=== PATIENT | male | born 1965 | race Caucasian/White ===

== ENCOUNTER 2022-03-08 11:40 | Emergency (ER) | payer OTHER, SELFPAY ==
--- NOTE | ~2022-03-08 | XR_ITS ---
EXAMINATION: XR finger 2nd LT min 2V DATE: 03/08/2022 12:11 INDICATION: Left hand second digit foreign body. TECHNIQUE: 3 views of left hand second digit were obtained. COMPARISON: None. FINDINGS: Bone alignment is normal. No fracture. There is mild osteoarthritis of second metacarpophal angeal joint and proximal interphalangeal joint and moderate osteoarthritis of second distal interpha langeal joint. IMPRESSION: 1. No radiopaque foreign body. 2. Polyarticular osteoarthritis. Reviewed, dictated and finalized at location A.
[2022-03-08 11:48] VITALS: BP 153/100; PULSE 83; RESP 20; TEMP 37.2; O2SAT 98
--- NOTE | 2022-03-08 12:37 | ED.EXTPRO ---
HPI - Extremity Problem General Chief complaint: Extremity Problem,Nontraumatic Stated complaint: Foreign Body in Finger Time Seen by Provider: 03/08/22 12:37 Source: patient, RN notes reviewed and old records reviewed Mode of arrival: ambulatory Limitations: no limitations History of Present Illness HPI Narrative: 56 year old male presents to express care with complaints of possible foreign body in his volar aspect of mid index finger noted since Monday. Patient has 0.25 cm diameter red swollen lesion to the volar mid aspect of left index finger. 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 Patient also reports that he needs his Tetanus updated. Patient report that he does not recall anything going into his finger and he denies any injury to left index finger. MD Complaint: other (possible foreign body left index finger) Onset (ago): day(s) (2) Pain Consistency: constant Location: left and other (index finger) Severity scale (1-10): 3 Related Data Allergies Allergy/AdvReac Type Severity Reaction Status Date / Time No Known Allergies Allergy Verified 03/08/22 12:22 Review of Systems Review of Systems: CONSTITUTIONAL: Denies fever, chills, or sweats. EYES: Denies visual changes, redness, or discharge. ENT: Denies rhinorrhea, congestion, sore throat, or otalgia. CARDIOVASCULAR: Denies chest pain, palpitations, or edema. RESPIRATORY: Denies cough or dyspnea. GASTROINTESTINAL: Denies abdominal pain, nausea, vomiting, or diarrhea. GENITOURINARY: Denies dysuria or hematuria. SKIN: Denies rash or itching.Positive for red raised painful lesion to the volar aspect of mid left index finger MUSCULOSKELETAL: Denies back pain, joint pain, or myalgia. NEUROLOGIC: Denies headache, numbness, or weakness. PSYCHIATRIC: Denies anxiety or depression. PMFSH Social History Social History (Updated 03/09/22 @ 09:22 by Jia Chung NP) Smoking status: Never smoker Alcohol intake: unknown Substance use: unknown Living arrangements: with family Gender identity (if verbalized by the patient): Male Comments At time of signature, agree with nursing past medical, surgical, social and family history. There is no relevant family history pertinent to the presenting complaint Exam Narrative: GENERAL: Well-appearing, well-nourished, and in no acute distress. HEAD: Normocephalic, atraumatic. EYES: PERRLA and EOMI. ENT: Nares clear, no rhinorrhea or epistaxis. Mucous membranes moist.TM's normal with good light reflex, throat pink with no lesions or exudates, no tonsil enlargement NECK: Supple.no lymphadenopathy CHEST: Clear to auscultation. No respiratory distress.SAO2 98% on room air HEART: Regular rate and rhythm. No murmur heard. Normal peripheral pulses. ABDOMEN: Soft, nontender, nondistended, normal active bowel sounds. EXTREMITIES: Normal range of motion. No edema. SKIN: Warm, dry, no rash. Red raised tender lesion to volar aspect of left mid index finger, tender on palpation and on examination purulent drainage emitted, no acute warmth of tissue, no foreign body identified, Wound cleansed with Primaderm cleanser and triple antibiotic ointment and band-aid applied. NEURO: No focal deficits. Alert and oriented x3. Course Course Level of Care: Express Care Visit Vital Signs Vital signs: Vital Signs Temperature 37.2 C 03/08/22 11:48 Pulse Rate 83 03/08/22 11:48 Respiratory Rate 20 03/08/22 11:48 Blood Pressure 153/100 H 03/08/22 11:48 Pulse Oximetry 98 03/08/22 11:48 Oxygen Delivery Room Air 03/08/22 11:48 Temperature 37.2 C 03/08/22 11:48 Pulse Rate 83 03/08/22 11:48 Respiratory Rate 20 03/08/22 11:48 Blood Pressure 153/100 H 03/08/22 11:48 Pulse Oximetry 98 03/08/22 11:48 Oxygen Delivery Room Air 03/08/22 11:48 MDM - Extremity (Nontraumatic) Differential Diagnosis Differential diagnosis: Elizabeth
[2022-03-08] MEDS: TETANUS,DIPHTHERIA,AC PERTUSSIS ADULT (0.5 ML) BOOSTRIX IM (13:04)
== END 2022-03-08 13:08 | disposition home or self-care (01) ==
PROVIDERS: Emergency Provider Registered Nurse
DX: L02.512 Cutaneous abscess of left hand (principal); Z23 Encounter for immunization
CPT/HCPCS: 73140; 90471; 90715; 99203; G0463

== ENCOUNTER 2022-09-11 15:09 | Emergency (ER) | payer OTHER, SELFPAY ==
--- NOTE | ~2022-09-11 | CT_ITS ---
EXAMINATION: CT diagnostic chest wo con DATE: 09/11/2022 18:12 INDICATION: left pleural effusion? TECHNIQUE: Computed tomography (CT) of the chest was performed with 100 mL Omnipaque-350 intravenous contrast. Automated exposure control and iterative reconstruction technique were employed. The dose-l ength product was 270.13 mGy-cm. COMPARISON: X-ray chest, same date. FINDINGS: CHEST: Thoracic aorta: Mild arch calcification. Lung parenchyma and airways: Dependent atelectasis. Lingular scar. Mild scattered peripheral intersti tial change with a few tree-in-bud opacities most notably in the lingula. Scattered calcified granulo mas. Thoracic inlet, axillae and chest wall: No thyroid or soft tissue mass. No axillary lymphadenopathy. Bilateral gynecomastia. Mediastinum: No mass or lymphadenopathy. Small hiatal hernia. Heart and pericardium: Normal heart size. No pericardial effusion. Coronary artery calcifications: Absent. Pleura: No effusion or mass. Upper abdomen: Diffuse fatty infiltration of the liver. Thoracic bones: No acute osseous finding in the chest. IMPRESSION: Mild interstitial and tree-in-bud opacities may reflect atypical infection versus small airways disea se. Lingular scarring without evidence of left pleural effusion. Gynecomastia. Steatosis. Reviewed, dictated and finalized at location K. NGUAL TEACHER ASSISTANT IMPRESSION: Mild interstitial and tree-in-bud opacities may reflect atypical infection vers us small airways disease. Lingular scarring without evidence of left pleural ef fusion. Gynecomastia. Steatosis.
--- NOTE | ~2022-09-11 | XR_ITS ---
EXAMINATION: XR chest 1V portable Exam Date/Time: 09/11/2022 16:26 INVESTMENT BANKER HISTORY: sob Comparison: None available. RESULT: Lines, tubes, and devices: None. Lungs and pleura: Clear. Blunting of left costophrenic angle. Cardiomediastinal silhouette: Unremarkable. Other: No acute osseous or upper abdominal finding. IMPRESSION: Small left pleural effusion versus chronic pleural parenchymal scarring. Reviewed, dictated and finalized at location K. STMENT BANKER
[2022-09-11 15:10] VITALS: BP 163/101; PULSE 102; RESP 18; TEMP 36.6; O2SAT 97
--- NOTE | 2022-09-11 16:12 | ECG_ITS ---
Measurements Intervals [place] Rate: 100 P: 53 MS: 175 QRS: 30 QRSD: 97 T: 36 QT: 343 QTc: 443 Interpretive Statements SINUS TACHYCARDIA WITH OCCASIONAL VENTRICULAR PREMATURE COMPLEXES BASELINE ARTIFACT BORDERLINE ECG NO PREVIOUS ECG AVAILABLE FOR COMPARISON Electronically Signed On 09-12-2022 14:45:28 EXCEPTIONAL NEEDS TEACHER by Jeison Brandt M.D.
[2022-09-11] MEDS: SODIUM CHLORIDE 0.9% IV 500 ML 999 ML IV CONT (16:37)
[2022-09-11 16:40] VITALS: BP 168/94; PULSE 89; RESP 20; O2SAT 97
[2022-09-11 16:42] LABS: Base Excess ABG 0.9 mmol/L (0-2); HCO3 ABG 23.4 mmol/L (23-29); Oxygen Content ABG 23.1 %vol (16.0-22.0); Oxygen Saturation ABG 97.1 % (95-97); Oxyhemoglobin 95.8 % (94-100); PCO2 ABG 32.1 mmHg (35-45); Total Hemoglobin 17.1 g/dL (12.0-18.0); pH ABG 7.48 (7.35-7.45)
[2022-09-11 16:48] LABS: Device ROOM AIR; Modified Allen's Test Pass; Site Drawn RIGHT RADIAL
[2022-09-11 16:50] LABS: Basophils Absolute Auto 0.05 K/mm3 (0.00-0.10); Basophils Percent Auto 0.6 % (0.0-1.0); Eosinophils Absolute Auto 0.07 K/mm3 (0.02-0.50); Eosinophils Percent Auto 0.8 % (1.0-6.0); Hematocrit 48.7 % (40.0-54.0); Hemoglobin 17.3 g/dL (14.0-18.0); Immature Granulocyte Absolute 0.03 K/mm3 (0.00-0.00); Immature Granulocyte Percent A 0.3 % (0.0-0.0); Lymphocytes Absolute Auto 1.21 K/mm3 (1.10-4.50); Lymphocytes Percent Auto 13.8 % (18.0-42.0); Mean Corpuscular HGB Conc 35.5 g/dL (32.0-36.0); Mean Corpuscular Hemoglobin 34.4 pg (27.0-31.0); Mean Corpuscular Volume 96.8 fL (78.0-102.0); Mean Platelet Volume 9.6 fl (8.7-11.0); Monocytes Absolute Auto 0.65 K/mm3 (0.10-0.90); Monocytes Percent Auto 7.4 % (2.0-11.0); Neutrophils Absolute Auto 6.8 K/mm3 (1.7-7.2); Neutrophils Percent Auto 77.1 % (50.0-70.0); Platelet Count Result 180 K/mm3 (150-420); Red Blood Count 5.03 M/mm3 (4.70-6.10); Red Cell Distribution Width 11.7 % (11.6-14.4); White Blood Count 8.8 K/mm3 (4.8-10.8)
[2022-09-11 17:05] LABS: Alanine Aminotransferase 119 U/L (16-63); Alkaline Phosphatase 63 U/L (46-116); Anion Gap 11 mmol/L (8-16); Aspartate Amino Transferase 61 U/L (15-37); Bilirubin,Total 0.9 mg/dL (0.00-1.00); Blood Urea Nitrogen 14 mg/dL (7-18); Calcium 9.2 mg/dL (8.5-10.1); Carbon Dioxide 27 mmol/L (21-32); Chloride 101 mmol/L (98-108); Estimated CRCL calculation 78 ml/min; Estimated Glomerular Filt Rate > 60; Glucose 84 mg/dL (70-99); Lactic Acid Reflex 1.4 mmol/L (0.4-2.0); Osmolality Calculated 287 mOsm/kg (285-295); Sodium 139 mmol/L (136-145); Total Protein 7.9 g/dL (6.4-8.2); Troponin I 10.5 ng/L (0.00-60.4)
--- NOTE | 2022-09-11 17:22 | PC.NURSE ---
pt resting per cot. friend in room with pt. no needs or concerns at this time. awaiting all results.
[2022-09-11 17:32] VITALS: BP 167/97; PULSE 90; RESP 20; O2SAT 97
[2022-09-11 19:02] LABS: Troponin I 10.2 ng/L (0.00-60.4)
[2022-09-11 19:04] VITALS: BP 149/81; PULSE 81; RESP 20; O2SAT 97
--- NOTE | 2022-09-11 19:05 | ED.GENADULT ---
HPI - General Adult General Chief complaint: Unspecified Stated complaint: fingers tingling, sob Time Seen by Provider: 09/11/22 15:13 Source: patient and RN notes reviewed Mode of arrival: ambulatory Limitations: no limitations History of Present Illness complaint: mild SOB, fingers tingling Onset (ago): hour(s) (2) Location: chest Radiation: non-radiation Severity: mild Pain Consistency: other (none) Relieving factors: none Exacerbating factors: none Associated symptoms: denies other symptoms Related Data Allergies Allergy/AdvReac Type Severity Reaction Status Date / Time No Known Allergies Allergy Verified 03/08/22 12:22 Review of Systems Review of Systems: All systems reviewed & are unremarkable except as noted in HPI and below Constitutional: Constitutional: Reports no additional constitutional complaints Eyes: Eyes: Reports no additional eye complaints ENT: Reports system reviewed and no additional complaints, except as documented Cardiovascular: Cardiovascular: Reports no additional cardiovascular complaints Respiratory: Respiratory: Reports no additional respiratory complaints Gastrointestinal: Gastrointestinal: Reports no additional gastrointestinal complaints Musculoskeletal: Musculoskeletal: Reports no additional musculoskeletal complaints Integumentary/Breasts: Skin/Breast: Reports system reviewed and no additional complaints, except as docu Neurologic: Reports system reviewed and no additional complaints, except as documented Psychiatric: Psychiatric: Reports no additional psychiatric complaints Endocrine: Endocrine: Reports no additional endocrine complaints Hematologic/Lymphatic: Hematologic/Lymphatic: Reports no additional hematologic/lymphatic complaints Allergic/Immunologic: Allergic/Immunologic: Reports no additional allergic/immunologic complaints [facility] Past Medical History Medical History (Updated 09/14/22 @ 23:49 by Erick Maynard MD) Bronchitis Social History Social History (Updated 03/09/22 @ 09:22 by Jia Chung NP) Smoking status: Never smoker Alcohol intake: unknown Substance use: unknown Gender identity (if verbalized by the patient): Male Exam Const: General: healthy appearing, no acute distress and well nourished Nutritional Appearance: well nourished Orientation/consciousness: patient oriented x3 Limitations: no limitations HENMT: Head: normal to inspection Ears: external ears normal, TM's normal bilaterally and EAC's normal Face/Nose/Sinus: Normal external nose present, Normal nares present, normal facial exam and sinuses nontender Face and sinus: normal facial exam and sinuses nontender Mouth: Yes Normal oral and palatal mucosa present and Yes moist mucous membranes Teeth and gingiva: dentition normal Throat: posterior oropharynx normal Eyes: Conjunctivae: conjunctivae normal Pupils: Equal, round and reactive pupils present EOM: EOMs intact bilaterally Neck: Neck: normal visual inspection, no lymphadenopathy and no meningeal signs Chest: Chest palpation & inspection: normal inspection of the chest Resp: Effort & Inspection: normal respiratory effort Auscultation: rhonchi and wheezes Cardio: Rate: regular rate Rhythm: regular rhythm GI: GI Palp: Yes Soft to palpation and No Tenderness to palpation present (GI) Auscultation: normal bowel sounds : General: Yes bladder normal to palpation and Yes no CVA tenderness Back/Spine/Pelvis: Back: no CVA tenderness Skin: General skin exam: normal color Rashes: no rashes Wounds: no wounds Neuro: General: patient oriented x3, moves all extremities, no meningeal signs, no focal motor deficits and CN's II-XI intact bilaterally Cranial nerves: Yes Equal, round and reactive pupils present and Yes Nystagmus not present Speech: normal speech Gait exam (Neuro): Normal gait present Extrem: General: normal to inspection and no pedal edema Psych: Mental Status: mental status grossly
[2022-09-11] MEDS: IPRATROPIUM 0.5 MG/ALBUTEROL SULFATE 2.5 MG AMPUL.NEB 3 ML INHALATION (19:19)
[2022-09-11] MEDS: cefTRIAXone 1 GM, LIDOCAINE HCL 1% LOCAL INJ 2.1 ML IM (19:22)
[2022-09-11 19:30] VITALS: BP 160/92; PULSE 88; RESP 18; TEMP 36.6; O2SAT 97
== END 2022-09-11 19:33 | disposition home or self-care (01) ==
PROVIDERS: Emergency Provider Emergency Medicine
DX: J40 Bronchitis, not specified as acute or chronic (principal); B34.9 Viral infection, unspecified
CPT/HCPCS: 36415; 36600; 71045; 71250; 80053; 82805; 83605; 84484; 85025; 93005; 96372; 99284; J0696; J7040

== ENCOUNTER 2025-09-08 10:37 | Emergency (ER) | payer OTHER, SELFPAY ==
[2025-09-08] VITALS (12 sets, daily range): BP systolic 111–129; BP diastolic 78–84; PULSE 81–98; RESP 16–18; TEMP 36.9; O2SAT 97–99
--- NOTE | 2025-09-08 10:45 | PC.NURSE ---
RN with ERP for chaperoned rectal exam
--- NOTE | 2025-09-08 10:52 | ED_ITS ---
HPI - GI Bleed General Chief complaint: GI Bleed Stated complaint: black tarry stools x3 days Time Seen by Provider: 09/08/25 10:52 Source: patient Mode of arrival: ambulatory Limitations: no limitations History of Present Illness HPI Narrative: 59 years old white male drove himself to the emergency room complaining of dark black stool over the last 3 days maximal 2 BM a day. Patient denies any fever, chills, nausea, vomiting, lightheadedness, abdominal pain, back pain or history of hemorrhoids. Patient drinks alcohol daily, does not smoke, uses marijuana daily. He reports having similar symptoms of 4 years ago without specific diagnosis. History of hypertension. Patient is not on any blood thinner. Related Data Allergies Allergy/AdvReac Type Severity Reaction Status Date / Time No Known Allergies Allergy Verified 09/08/25 10:50 Review of Systems 2 Review of Systems: All systems reviewed & are unremarkable except as noted in HPI and below PMFSH Past Medical History Medical History Bronchitis Social History Social History Smoking status: Never smoker Alcohol intake: unknown Substance use: unknown Living arrangements: with family Gender identity (if verbalized by the patient): Male Exam 2 Narrative: General appearance: Well-developed, well-nourished Skin: Normal color Head: Normocephalic, nontraumatic Eyes: Clear conjunctiva ENT: Oropharynx normal, ears normal, nose normal Neck: Supple, nontender Chest and respiratory: Airway patent, no respiratory distress, no accessory muscle use Heart: Regular rate/rhythm Abdomen: Soft, nontender, no organomegaly, quiet bowel sounds, rectal exam showing black tarry stool, guaiac positive Vascular: Normal peripheral pulses, normal capillary refill. Musculoskeletal: Normal range of motion, nontender back Neurologic: Alert and oriented ?3, ESTATE CONSERVATOR is normal as tested, no gross motor deficit Course Vital Signs Vital signs: Vital Signs Temperature 36.9 C 09/08/25 10:37 Pulse Rate 90 09/08/25 10:37 Respiratory Rate 16 09/08/25 10:37 Blood Pressure 121/79 09/08/25 10:37 Pulse Oximetry 99 09/08/25 10:37 Temperature 36.9 C 09/08/25 10:37 Pulse Rate 90 09/08/25 10:37 Respiratory Rate 16 09/08/25 10:37 Blood Pressure 121/79 09/08/25 10:37 Pulse Oximetry 99 09/08/25 10:37 MDM - GI Bleed MDM Narrative Medical decision making narrative: Patient presents with black stool otherwise Vital signs are stable Physical examination showing dark black stool, guaiac positive otherwise insignificant Differential diagnosis upper GI bleed, esophageal varices, gastritis, esophagitis, GERD secondary to excessive alcohol intake Blood workup today includes CBC, CMP, coags, magnesium level showed hemoglobin 15.5, platelet 186, INR 1.0, magnesium 2.0, lipase 57. Diagnosis upper GI bleed Discharged home on Protonix, advised to quit drinking alcohol Follow-up with package sealer The pt was discharged to home.the pt,s condition upon discharge was fair,education was provided to the pt in reference to the final impression,discharge study results,treatment,prognosis and need for follow up . Differential Diagnosis Differential diagnosis: Likely other (As above) Medical Records Attestation: I reviewed the patient's medical records. Lab Data Attestation: I reviewed the patient's lab results. 09/08/25 11:02 09/08/25 11:02 Labs: Lab Results 09/08/25 09/08/25 Range/Units 10:46 11:02 WBC 7.6 (4.8-10.8) K/mm3 RBC 4.46 L (4.70-6.10) M/mm3 Hgb 15.5 (14.0-18.0) g/dL Hct 42.5 (40.0-54.0) % MCV 95.3 (78.0-102.0) fL MCH 34.8 H (27.0-31.0) pg MCHC 36.5 H (32-36) g/dL RDW 11.3 L (11.6-14.4) % Plt Count 186 (150-420) K/mm3 MPV 9.1 (8.7-11.0) fl Immature Gran % (Auto) 0.4 H (0.0-0.0) % Neut % (Auto) 87.9 H (50.0-70.0) % Lymph % (Auto) 7.3 L (18.0-42.0) % [place] % (Auto) 3.9 (2.0-11.0) % Eos % (Auto) 0.1 L (1.0-6.0) % Baso % (Auto) 0.4 (0.0-1.0) % Lymph # (Auto) 0.56 L (1.10-4.50) K/mm3 [place] # (Auto) 0.30 (0.10-0.90) K/mm3 Eos # (Auto) 0.01 L (0.02-0.50) K/mm3 Baso # (Auto) 0.03 (0.00-0.10) K/mm3 Abs Immat Gran (auto) 0.03 H (0.00-0.00) K/mm3 Absolute Neuts (auto) 6.71 (1.70-7.20) K/mm3 Absolute Nucleated RBC 0.00 (0.00-0.00) K/mm3 Nucleated RBC % 0.0 (0-0.0) % PT 10.9 (9.50-12.1) Seconds INR 1.0 APTT 28.1 (23.9-30.70) Sec Sodium 137 (137-145) mmol/L Potassium 3.7 (3.4-5.0) mmol/L Chloride 102 (98-107) mmol/L Carbon Dioxide 25 (22-30) mmol/L Anion Gap 10 (4-12) mmol/L BUN 10 (9-20) mg/dL Creatinine 0.66 L (0.7-1.3) mg/dL Estim Creat Clear Calc 110 ml/min Estimated GFR > 60 (59 - ) Glucose 109 (65-110) mg/dL Calculated Osmolality 284 L (285-295) mOsm/kg Calcium 9.3 (8.4-10.2) mg/dL Magnesium 2.0 (1.6-2.3) mg/dL Total Bilirubin 0.7 (0.2-1.3) mg/dL AST 44 (17-59) U/L ALT 34 (6-50) U/L Alkaline Phosphatase 61 (38-126) U/L Total Protein 7.6 (6.3-8.2) g/dL Albumin 4.5 (3.5-5.1) g/dL Lipase 57 (23-300) U/L Stool Occult Blood Positive A (Negative) Critical Care Time Critical Care Time Critical Care Time: No Discharge Plan Discharge Clinical Impression: GI (gastrointestinal bleed) Patient Disposition: Home Condition: Stable Instructions: Gastrointestinal Bleeding (ED) Additional Instructions: Return if symptoms are worsening , call your family physician/package sealer for appointment, continue home medications. Stop drinking alcohol Patient Language: Malaysian Prescriptions: New pantoprazole [Protonix] 40 mg tablet,delayed release (DR/EC) 40 mg PO HS 28 Days Qty: 28 0RF No Action amoxicillin 875 mg tablet 875 mg PO Q12H Qty: 20 0RF albuterol sulfate [Ventolin HFA] 90 mcg/actuation HFA aerosol inhaler 2 puff inhalation QID Qty: 8.5 0RF Follow-up/Referrals: Jeremie Parks MD [Physician, Gastroenterology] - 09/10/25 UNKNOWN,DOCTOR [Non-Staff]
--- NOTE | 2025-09-08 11:01 | PC.NURSE ---
Patient reports fear of needles when lab entered room, patient cooperative with research lab assistant for blood work but refuses IV at this time. ERP is aware, will wait on fluids until lab results and re-evaluate.
[2025-09-08 11:07] LABS: Hematocrit 42.5 % (40.0-54.0); Hemoglobin 15.5 g/dL (14.0-18.0); Immature Granulocyte Percent A 0.4 % (0.0-0.0); Lymphocytes Absolute Auto 0.56 K/mm3 (1.10-4.50); Mean Corpuscular HGB Conc 36.5 g/dL (32-36); Mean Corpuscular Hemoglobin 34.8 pg (27.0-31.0); Mean Corpuscular Volume 95.3 fL (78.0-102.0); Nucleated Red Blood Cells Absolute Auto 0.00 K/mm3 (0.00-0.00); Nucleated Red Blood Cells Perc 0.0 % (0-0.0); Platelet Count Result 186 K/mm3 (150-420); Red Blood Count 4.46 M/mm3 (4.70-6.10); White Blood Count 7.6 K/mm3 (4.8-10.8)
[2025-09-08 11:20] LABS: INR 1.0; Partial Thromboplastin Time 28.1 Sec (23.9-30.70); Prothrombin Time 10.9 Seconds (9.50-12.1)
[2025-09-08 11:21] LABS: Alanine Aminotransferase 34 U/L (6-50); Albumin Level 4.5 g/dL (3.5-5.1); Alkaline Phosphatase 61 U/L (38-126); Anion Gap 10 mmol/L (4-12); Aspartate Amino Transferase 44 U/L (17-59); Bilirubin,Total 0.7 mg/dL (0.2-1.3); Blood Urea Nitrogen 10 mg/dL (9-20); Calcium 9.3 mg/dL (8.4-10.2); Carbon Dioxide 25 mmol/L (22-30); Chloride 102 mmol/L (98-107); Estimated CRCL calculation 110 ml/min; Estimated Glomerular Filt Rate > 60; Glucose 109 mg/dL (65-110); Lipase 57 U/L (23-300); Magnesium 2.0 mg/dL (1.6-2.3); Osmolality Calculated 284 mOsm/kg (285-295); Potassium 3.7 mmol/L (3.4-5.0); Sodium 137 mmol/L (137-145); Total Protein 7.6 g/dL (6.3-8.2)
--- OUTSIDE RECORDS SUMMARY | 2025-09-08 12:08 | XMS_ITS | Clinical Summary ---
Author Organization [facility] Address [address] [place] [address] Phone Care Team Providers Care Concaver Name Role Phone Gutierrez Matos MD Primary Care Provider [phone] [phone] Allergies No known active allergies Medications diclofenac DR (VOLTAREN) 75 mg EC tablet Take 1 tablet (75 mg total) by mouth 2 (two) times a day 60 tablet 3 03/26/2025 Active losartan (COZAAR) 50 mg tablet TAKE 1 TABLET BY MOUTH EVERY DAY 90 tablet 1 05/30/2025 Active Active Problems Problem Noted Date Diagnosed Date Encounter for screening colonoscopy 04/04/2025 DJD (degenerative joint disease) 03/26/2025 Assessment & Plan (03/26/2025 2:12 PM CDT): Intermittent flares of pain posttraumatic. Good results with diclofenac in the past. Will E scribe. Will monitor response. Subclinical hypothyroidism 09/18/2024 Assessment & Plan (03/26/2025 2:13 PM CDT): Clinically euthyroid. Will check TFTs with next set of labs. Assessment & Plan (09/18/2024 1:32 PM CHRISTIAN EDUCATION DIRECTOR): Stable. Will continue to monitor. Alcohol abuse 03/14/2024 Assessment & Plan (03/14/2024 1:43 PM CDT): Highly encouraged to cut back at a minimum. Liver enzymes improved when he cut back last time. He states he will do his best. Will continue to monitor. Colonoscopy refused 03/14/2024 Assessment & Plan (03/14/2024 1:48 PM CDT): Reviewed risks and benefits of colonoscopy and Cologuard. He declines either. States he will consider colonoscopy at the age of 60. Elevated liver enzymes 09/13/2023 Assessment & Plan (03/26/2025 2:11 PM CDT): Stable. Continue to decrease alcohol intake. Will continue to monitor. Assessment & Plan (09/18/2024 1:32 PM CHRISTIAN EDUCATION DIRECTOR): Improved with decreased alcohol intake. Keep up the great work! Assessment & Plan (03/14/2024 1:48 PM CDT): Uptic in liver enzymes with increase in alcohol intake. Again discussed cutting back and reviewed his labs with him today. He states he will do his best. Will recheck upon return. If continues to be elevated will order liver ultrasound. Assessment & Plan (09/13/2023 2:01 PM CHRISTIAN EDUCATION DIRECTOR): Has cut his alcohol intake in half. Keep up the great work! Had labs drawn today. Will let you know what those show once they are received. Hypertension, essential 09/13/2023 Assessment & Plan (03/26/2025 2:11 PM CDT): Well controlled on losartan. No changes. Will continue to monitor. Assessment & Plan (09/18/2024 1:32 PM CHRISTIAN EDUCATION DIRECTOR): Controlled on losartan. No changes. Keep up the great work with lifestyle changes! Will continue to monitor. Assessment & Plan (03/14/2024 1:41 PM CDT): Controlled on losartan. No changes. Reviewed lifestyle recommendations. Will continue to monitor. Assessment & Plan (09/13/2023 2:01 PM CHRISTIAN EDUCATION DIRECTOR): Above goal. Will increase losartan to 50 mg daily and monitor response. Continue to work on cutting back alcohol. Annual physical exam 09/13/2023 Assessment & Plan (09/18/2024 12:55 PM CHRISTIAN EDUCATION DIRECTOR): In regard to health maintenance, Colonoscopy will think about it next year PSA utd Influenza vaccine declines Shingrix vaccine declines ASCVD risk:4.6% Eat a healthy diet: focus on lean meats and proteins, more fruits, vegetables and whole grains and low in sugars and fats. Limit red meat and avoid processed meat. Maintain a healthy weight; avoid being overweight. Aim for a normal body mass index (BMI) of 18.5-24.9. Help learning to eat healthier, we can set up appointment with pull over machine operator/tuft machine operator. Have an active lifestyle, strive for 30 minutes of moderate exercise 5 times a week and strength or resistance training at least twice a week. Use broad-spectrum (UVA+UVB) sunscreen with SPF 30 or greater, is water resistant, limit time spent in the sun (10 am-4pm), wear hat, wear UV protective clothing, wear sunglasses. Never use a tanning bed. Skin that was irradiated may be more sensitive over your lifetime. Do not smoke or chew tobacco; participate in a smoking cessation program. Limit alcohol intake, 1 drink per day for a woman and 2 drinks per day for a man. Assessment & Plan (09/13/2023 2:04 PM CHRISTIAN EDUCATION DIRECTOR): Visit preventive in nature. We reviewed medications, chronic conditions, risk factors, lifestyle recommendations. Reviewed immunization recommendations. Discussed colon cancer screening with colonoscopy versus Cologuard. He declines any colon cancer screening today. Denies personal or family history of colon cancer or polyps. We did review the risks and benefits and he states understanding. Will continue to encourage. Follow-up in 6 months for chronic conditions and 1 year for annual wellness. Encounters Date Type Department Care Team Description 09/08/2025 Nurse Triage [facility] [address] [address] Gutierrez Matos MD 07/18/[address] [facility] Gastroenterology at [address] [place] [address] Jeimy Reyes Colonoscopy Reschedule from Last 3 Months Immunizations Immunization Administration Dates Next Due Influenza, Unspecified 09/13/2023(Deferr ed: Patient Refused),11/07/2022(Deferred: Patient Refused) Medical History Medical History Date Comments Hypertension Family History Relation Name Status Comments Brother 1 Alive Brother 2 Father Mother Sister Other pt states he escobar s had no contact with sister in 20 years Social History Tobacco Use Types Packs/Day Years Used Date Smoking Tobacco: Never Tobacco Cessation:Counseling Given: Not Answered AUDIT-C Answer Date Recorded Q1: How often do you have a drink containing alcohol? 4 or more times a week 09/13/2023 Q2: How many drinks containi ng alcohol do you have on a typical day when you are drinking? 5 or 6 Q3: How often do you have si x or more drinks on one occasion? 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 on file Not on file Last Filed Vital Signs Vital Sign Reading Time Taken Comments Blood Pressure 120/82 03/26/2025 12:31 PM CDT Pulse 87 03/26/2025 12:31 PM CDT Temperature 36.5 C (97.7 F) 03/26/2025 12:31 PM CDT Respiratory Rate 20 03/26/2025 12:3 1 PM CDT Oxygen Saturation 97% 03/26/2025 12: 31 PM CDT Inhaled Oxygen Concentration - - Weight 79.3 kg (174 lb 12.8 oz) 025 12:31 PM CDT Height 180.3 cm (5' 10.98) 03/26/2025 12:31 PM CDT Body Mass Index 24.39 03/26/2025 12:31 PM CDT Plan of Treatment Upcoming Encounters Date Type Department Care Team (Late st Contact Info) Description 12/05/2025 9:30 AM CHRISTIAN EDUCATION DIRECTOR Hospital Encounter [address] [address] Lesley Rebollar MD [address] [place] [address] [address] [place] [address] 12/05/2025 9:30 AM CHRISTIAN EDUCATION DIRECTOR - 12/05/2025 10:00 AM CHRISTIAN EDUCATION DIRECTOR Surgery [address] [address] Lesley Rebollar MD [address] [place] [address] [address] [place] [address] COLONOSCOPY Scheduled Procedures Name Priority Associated Diagnoses Date/Ti me COLONOSCOPY Encounter for screening colonoscopy 12/05/2025 9:30 AM CHRISTIAN EDUCATION DIRECTOR Health Maintenance Due Date Last Done Comments Colon Cancer Screening-Colonoscopy 1965 Hepatitis C Screening 1965 DTaP/Tdap/Td Vaccine (1 - Tdap) 1976 Hepatitis B Screening 1983 Zoster Vaccine (1 of 2) 2015 Depression Screening 09/18/2025 09/18/2024, 09/13/2023, 05/08/2023, Additional history exists Regular Well Visit/Exam 18-64 09/18/2025 09/18/2024, 09/13/2023 Prostate Cancer Screening-PSA 09/16/2026 09/16/2024, 05/08/2023 Influenza Vaccine Discontinued Pneumococcal vaccine <65 Aged Out No longer eligible based on patient's age to complete this topic Procedures Procedure Name Priority Date/Time Associated Diagnosis Comments PSA SCREEN Routine 09/16/2024 4:01 PM CHRISTIAN EDUCATION DIRECTOR Screening for prostate cancer Annual physical exam Hypertension, essential Lipid screening from Last 3 Months or Most Recently Relevant to Health Maintenance Results * PSA screen (09/16/2024 4:01 PM CHRISTIAN EDUCATION DIRECTOR) PSA-Total 0.53 <=3.90 ng/mL Comment: Interpretive Data AGE SEX REFERENCE INTERVAL 0 minutes-150 years Female None 0 minutes-49 years Male None 50-59 years Male 0-3.90 60-69 years Male 0-5.40 70-79 years Male 0-6.20 80-150 years Male 0-6.20 The Radha PSA Total assay procedure was used. Results from different manufacturers or methods may not be comparable. Serial testing should be performed using the same method. Current interpretive data last revised 22. Testing performed by: [facility], [address] [place] [address]., [address] Blood 09/16/2024 4:01 PM CHRISTIAN EDUCATION DIRECTOR 09/16/2024 9:29 PM CHRISTIAN EDUCATION DIRECTOR us Isamar Acevedo NP LAB BLOOD ORDERABLES Final Result [facility] ([place]) 1 [facility] [place] [address] from Last 3 Months or Most Recently Relevant to Health Maintenance Insurance [facility] Care Teams Concaver Relationship Specialty Start Date End [place] [address] PCP - General Family Medicine 11/07/22
--- OUTSIDE RECORDS SUMMARY | 2025-09-08 12:08 | XMS_ITS | Encounter Summary ---
Author Organization [facility] Healthcare Address [address] [place] [address] Care Team Providers Care Agricultural Technical Officer Name Role Phone Gutierrez Maots MD Primary Care Provider [phone] Reason for Visit * Reason Onset Date Comments Black or Bloody Stool 09/08/2025 Encounter Details Date Type Department Care Team ([facility] st Contact Info) Description 09/08/2025 Nurse Triage [facility] [address] [facility] [place] [address] Gutierrez Matos MD [address] [place] [address] Social History Tobacco Use Types Packs/Day Years Used Date Smoking Tobacco: Never AUDIT-C Answer Date Recorded Q1: How often [...] on file Legal Sex Male 4:05 PM OIL AND GAS LEASE PUMPER Gender Identity Not on file Sexual Orientation Not on file 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 AND GAS LEASE PUMPER * Telephone Encounter - Ruth Monk RN - 09/08/2025 9:32 AM CST Reason for Conversation Black or Bloody Stool Background Pt reports black tarry stools for approx 3 days., approx 5 times. No other symptoms. ER dispo for black/tarry stools. Pt verbalized understanding and agreement and will go to [facility] ER FYI message sent to PCP. Disposition Go to ED Now, See More Appropriate Protocol Reason for Disposition Black or tarry bowel movements Bloody, black, or tarry bowel movements (Exception: Chronic-unchanged black-mchugh bowel movements and is taking iron pills or Pepto-Bismol.) 1. COLOR: What color is your stool? Is that color in part or all of the stool? (e.g., black, preston-colored, green, red) Black 2. ONSET: When did you first notice this color change? Monday morning 3. CAUSE: Have you eaten any food or taken any medicine of this color? Note: See listing in Background Information section. No 4. OTHER SYMPTOMS: Do you have any other symptoms? (e.g., abdomen pain, diarrhea, fever, yellow eyes or skin). No other symptoms No Additional Information on file. Protocols Used Rectal Eyjjbqfd-Rlans-IQ Stools - Unusual Ixxor-Plbmx-GH AND GAS LEASE PUMPER * Telephone Encounter - Ruth Monk RN - 09/08/2025 9:27 AM CST Regarding: black ,tarry, stool ----- Message from Kinza Andino sent at 09/08/2025 9:19 AM OIL AND GAS LEASE PUMPER ----- Symptom Based Call Chief Complaint(s): black ,tarry, stool Duration: over the weekend What type of symptom(s) is the patient experiencing? Red Flag. Is the patient concerned they are experiencing a medical emergency requiring an ambulance? No Additional Comments: otherwise feels great Does message need to be routed? Yes-Action Needed AND GAS LEASE PUMPER documented in this encounter Plan of Treatment Upcoming Encounters Date Type Department Care Team (Late st Contact Info) Description 12/05/2025 9:30 AM OIL AND GAS LEASE PUMPER Hospital Encounter [address] [address] Lesley Rebollar MD [address] [place] [address] [address] [place] [address] 12/05/2025 9:30 AM OIL AND GAS LEASE PUMPER - 12/05/2025 10:00 AM OIL AND GAS LEASE PUMPER Surgery [address] [address] Lesley Rebollar MD [address] [place] [address] [address] [place] [address] COLONOSCOPY Scheduled Procedures Name Priority Associated Diagnoses Date/Ti me COLONOSCOPY Encounter for screening colonoscopy 12/05/2025 9:30 AM OIL AND GAS LEASE PUMPER documented as of this encounter Visit Diagnoses Not on filedocumented in this encounter Care Teams Agricultural Technical Officer Relationship Specialty Start Date End Date Gutierrez Matos MD [address] [place] [address] PCP - General Family Medicine 11/07/22 documented as of this encounter
--- OUTSIDE RECORDS SUMMARY | 2025-09-08 13:02 | XMS_ITS | Encounter Summary ---
Author Organization [facility] Healthcare Address [address] [place] [address] Care Team Providers Care Heater Operator Helper Name Role Phone Gutierrez Matos MD Primary Care Provider [phone] Reason for Visit * Reason Onset Date Comments Black or Bloody Stool 09/08/2025 Encounter Details Date Type Department Care Team ([facility] st Contact Info) Description 09/08/2025 Nurse Triage [facility] [address] 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 FIC CONTROL SPECIALIST * Telephone Encounter - Ruth Monk RN - 09/08/2025 9:32 AM CST Reason for Conversation Black or Bloody Stool Background Pt reports black tarry stools for approx 3 days., approx 5 times. No other symptoms. ER dispo for black/tarry stools. Pt verbalized understanding and agreement and will go to [facility] ER FYI message sent to PCP. Disposition [...] Additional Information on file. Protocols Used Rectal Akgyuxke-Qcyfd-ZW Stools - Unusual Oorcs-Tpqsx-NO FIC CONTROL SPECIALIST * Telephone Encounter - Ruth Monk RN - 09/08/2025 9:27 AM CST Regarding: black ,tarry, stool ----- Message from Kinza Andino sent at 09/08/2025 9:19 AM TRAFFIC CONTROL SPECIALIST ----- Symptom Based Call Chief Complaint(s): black ,tarry, stool Duration: over the weekend What type of symptom(s) is the patient experiencing? Red Flag. Is the patient concerned they are experiencing a medical emergency requiring an ambulance? No Additional Comments: otherwise feels great Does message need to be routed? Yes-Action Needed FIC CONTROL SPECIALIST documented in this encounter Plan of Treatment Upcoming Encounters Date Type Department Care Team (Late st Contact Info) Description 12/05/2025 9:30 AM TRAFFIC CONTROL SPECIALIST Hospital Encounter [address] [address] Lesley Rebollar MD [address] [place] [address] [address] [place] [address] 12/05/2025 9:30 AM TRAFFIC CONTROL SPECIALIST - 12/05/2025 10:00 AM TRAFFIC CONTROL SPECIALIST Surgery [address] [address] Lesley Rebollar MD [address] [place] [address] [address] [place] [address] COLONOSCOPY Scheduled Procedures Name Priority Associated Diagnoses Date/Ti me COLONOSCOPY Encounter for screening colonoscopy 12/05/2025 9:30 AM TRAFFIC CONTROL SPECIALIST documented as of this encounter Visit Diagnoses Not on filedocumented in this encounter Care Teams Heater Operator Helper Relationship Specialty Start Date End Date Gutierrez Matos MD [address] [place] [address] PCP - General Family Medicine 11/07/22 documented as of this encounter
--- OUTSIDE RECORDS SUMMARY | 2025-09-08 13:02 | XMS_ITS | Clinical Summary ---
Author Organization [facility] Address [address] [place] [address] Phone Care Team Providers Care Water Pollution Control Inspector Name Role Phone Gutierrez Matos MD Primary Care Provider [phone] [phone] Allergies No known active allergies Medications diclofenac [...] labs. Assessment & Plan (09/18/2024 1:32 PM PROSTHETIC LAB TECHNICIAN): Stable. Will continue to monitor. Alcohol abuse [...] monitor. Assessment & Plan (09/18/2024 1:32 PM PROSTHETIC LAB TECHNICIAN): Improved with decreased alcohol intake. Keep up the great work! Assessment & Plan (03/14/2024 1:48 PM CDT): Uptic in liver enzymes with increase in alcohol intake. Again discussed cutting back and reviewed his labs with him today. He states he will do his best. Will recheck upon return. If continues to be elevated will order liver ultrasound. Assessment & Plan (09/13/2023 2:01 PM PROSTHETIC LAB TECHNICIAN): Has cut his alcohol intake in half. Keep up the great work! Had labs drawn today. Will let you know what those show once they are received. Hypertension, essential 09/13/2023 Assessment & Plan (03/26/2025 2:11 PM CDT): Well controlled on losartan. No changes. Will continue to monitor. Assessment & Plan (09/18/2024 1:32 PM PROSTHETIC LAB TECHNICIAN): Controlled on losartan. No changes. Keep up the great work with lifestyle changes! Will continue to monitor. Assessment & Plan (03/14/2024 1:41 PM CDT): Controlled on losartan. No changes. Reviewed lifestyle recommendations. Will continue to monitor. Assessment & Plan (09/13/2023 2:01 PM PROSTHETIC LAB TECHNICIAN): Above goal. Will increase losartan to 50 mg daily and monitor response. Continue to work on cutting back alcohol. Annual physical exam 09/13/2023 Assessment & Plan (09/18/2024 12:55 PM PROSTHETIC LAB TECHNICIAN): In regard to health maintenance, Colonoscopy will [...] healthier, we can set up appointment with cocoa bean roaster helper/spring former hand. Have an active lifestyle, strive for 30 [...] man. Assessment & Plan (09/13/2023 2:04 PM PROSTHETIC LAB TECHNICIAN): Visit preventive in nature. 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 on file Not [...] st Contact Info) Description 12/05/2025 9:30 AM PROSTHETIC LAB TECHNICIAN Hospital Encounter [address] [address] Lesley Rebollar MD [address] [place] [address] [address] [place] [address] 12/05/2025 9:30 AM PROSTHETIC LAB TECHNICIAN - 12/05/2025 10:00 AM PROSTHETIC LAB TECHNICIAN Surgery [address] [address] Lesley Rebollar MD [address] [place] [address] [address] [place] [address] COLONOSCOPY Scheduled Procedures Name Priority Associated Diagnoses Date/Ti me COLONOSCOPY Encounter for screening colonoscopy 12/05/2025 9:30 AM PROSTHETIC LAB TECHNICIAN Health Maintenance Due Date Last Done Comments [...] Comments PSA SCREEN Routine 09/16/2024 4:01 PM PROSTHETIC LAB TECHNICIAN Screening for prostate cancer Annual physical exam Hypertension, essential Lipid screening from Last 3 Months or Most Recently Relevant to Health Maintenance Results * PSA screen (09/16/2024 4:01 PM PROSTHETIC LAB TECHNICIAN) PSA-Total 0.53 <=3.90 ng/mL Comment: Interpretive Data [...] data last revised 22. Testing performed by: [facility], [address] [place] [address]., [address] Blood 09/16/2024 4:01 PM PROSTHETIC LAB TECHNICIAN 09/16/2024 9:29 PM PROSTHETIC LAB TECHNICIAN us Isamar Acevedo NP LAB BLOOD ORDERABLES Final Result [facility] ([facility]) 1 [facility] [place] [address] from Last 3 Months or Most Recently Relevant to Health Maintenance Insurance [facility] Address: [address] [address] [facility] PLUS [facility]O Address: [facility] [address] [place] [address] Care Teams Water Pollution Control Inspector Relationship Specialty Start Date End Date [place] [address] PCP - General Family Medicine 11/07/22
== END 2025-09-08 12:11 | disposition home or self-care (01) ==
PROVIDERS: Emergency Provider Emergency Medicine
DX: K92.2 Gastrointestinal hemorrhage, unspecified (principal)
CPT/HCPCS: 36415; 80053; 82272; 83690; 83735; 85025; 85610; 85730; 99283